=== PATIENT | male | born 1985 | race Caucasian/White ===

== ENCOUNTER 2020-08-25 10:26 | Outpatient (REF) | payer OTHER, SELFPAY ==
[2020-08-25 11:32] LABS: MANUAL DIFF FLAG NO
[2020-08-25 11:34] LABS: Basophils Percent Auto 0.7 % (0-2); Eosinophils Absolute Auto 0.2 X10*3/uL (0.0-0.4); Eosinophils Percent Auto 2.8 % (0-4); Hemoglobin 14.8 g/dl (14.0-18.0); Imm Gran Abs Auto 0.02 X10*3/uL (0.00-0.03); Imm Gran Pct Auto 0.3 % (0.0-0.4); Lymphocytes Absolute Auto 1.5 X10*3/uL (1.2-4.9); Lymphocytes Percent Auto 24.1 % (20-40); Mean Corpuscular HGB Conc 32.9 g/dl (31.0-36.0); Mean Corpuscular Hemoglobin 29.7 pg (27.0-33.0); Mean Corpuscular Volume 90.4 fL (80-98); Mean Platelet Volume 11.1 fL (9.4-12.4); Monocytes Absolute Auto 0.6 X10*3/uL (0.1-1.2); Monocytes Percent Auto 9.1 % (2-11); Neutrophils Absolute Auto 3.8 X10*3/uL (2.0-8.3); Platelet Count 281 X10*3/uL (160-400); Red Blood Count 4.98 X10*6/uL (4.60-5.80); Red Cell Distribution Width 11.4 % (11.0-16.0); White Blood Count 6.1 X10*3/uL (4.8-10.8)
[2020-08-25 12:07] LABS: Alanine Aminotransferase 13 U/L (0-40); Albumin Level 4.4 g/dL (3.5-5.0); Alkaline Phosphatase 60 U/L (39-117); Anion Gap 11 (12-20); Aspartate Amino Transferase 18 U/L (5-37); Bilirubin Total 0.5 mg/dL (0.0-1.0); Blood Urea Nitrogen 14 mg/dL (9-16); Calcium 9.5 mg/dL (8.4-10.2); Carbon Dioxide 28 mmol/L (22-29); Chloride 105 mmol/L (96-108); Cholesterol 209 mg/dL; Estimated Glomerular Filt Rate > 60; Glucose Random 80 mg/dL (60-115); HDL Cholesterol 43 mg/dL; LDL Cholesterol Calculated 147 mg/dl; Potassium 4.2 mmol/l (3.3-5.1); Sodium 140 mmol/L (135-145); Total Protein 7.5 g/dL (6.5-8.0); Triglycerides 97 mg/dL
[2020-08-25 12:29] LABS: Free T4 (Free Thyroxine) 1.02 ng/dL (0.71-1.85); Thyroid Stimulating Hormone 0.74 uIU/mL (0.32-4.0)
[2020-08-25 13:48] LABS: Folate > 20.0 ng/mL (> or = 4.0); Vitamin B12 639 pg/mL (200-900)
== END 2020-08-25 10:27 | disposition home or self-care (01) ==
LOC: HO.LAB 10:26
PROVIDERS: PCP Internal Medicine; Visit Provider Internal Medicine
DX: G40.909 Epilepsy, unspecified, not intractable, without status epilepticus (principal); R79.89 Other specified abnormal findings of blood chemistry; E78.00 Pure hypercholesterolemia, unspecified
CPT/HCPCS: 36415; 80053; 80061; 82607; 82746; 84439; 84443; 85025

== ENCOUNTER 2020-11-15 15:20 | Outpatient (REF) | payer OTHER, SELFPAY ==
--- NOTE | 2020-11-15 14:38 | MHC.AU.AEV ---
Adult Audiological Evaluation Date of Visit: 11/15/20 Reason for Appointment: Audiological evaluation as required per [place] [facility]. His caregiver deny any concerns for Osbaldo's hearing or any changes to his medical history. Does patient feel they have a hearing loss?: No Has hearing been tested previously?: Yes Previous Hearing Test Results: [facility] [place], [place]01/[place]- Cerumen occlusion, hypercompliant middle-ear systems, and OAEs and speech testing suggest mild hearing loss. Ear History: History of Ear Wax Buildup: Both Ears Medical History: Medical History: Developmental Disorder/Delay, Seizure Disorder Medical History: OCD/Mood Disorder Otoscopy: Right Ear: Partially occluded with cerumen, able to partially view TM Left Ear: Occluded with cerumen, unable to view TM. Tympanometry: Tympanometry performed due to: History of middle ear dysfunction Right Ear: Hypercompliant Middle Ear System (Type Ad) Left Ear: Hypercompliant Middle Ear System (Type Ad) Otoacoustic Emissions Frequency Range Used: 1.6-8 kHz Right Ear Results: Reduced Emissions Analysis: Reduced/Absent emissions suggest cochlear dysfunction Reduced/absent emissions may be consequence of middle ear dysfunction Left Ear Results: Present at 1600 Hz, reduced/absent 8441-5146 Hz. Analysis: Reduced/Absent emissions suggest cochlear dysfunction Reduced/absent emissions may be consequence of middle ear dysfunction Hearing Evaluation: Transducer(s) Used: Circumaural Headphones Method: Conventional Audiometry, Visual Reinforcement Audiometry (VRA) Stimuli Used: FRESH Noise, Pure Tones Description of Hearing: Attempted VRA and conventional audiometry. Uninterested in the task and would not participate. Unable to obtain any frequency specific responses. Speech Recognition Threshold (SRT): Method Used: Monitored Live Voice Stimuli Used: Spondee Words Right Ear: 20 dBHL Left Ear: 20 dBHL Interpretation of Results: Speech testing indicates hearing in the normal range for speech stimuli. Unable to determine frequency specific thresholds at this time. Decreased/absent OAEs suggest hearing loss bilaterally, however OAEs may be impacted by hypercompliant middle-ear systems and cerumen build-up. Recommendations: Audiological re-evaluation if changes are noted. Audiological re-evaluation in one year. Follow-up with physician for cerumen removal. Given that no concerns are noted, plan to continue routine follow-ups yearly. If concerns arise, may considered a referral to otolaryngology and/or a sedated ABR. Diagnosis: Primary Diagnosis: H61.23 Impacted Cerumen, Bilateral Secondary Diagnosis: H69.93 Unspecified Eustachian Tube Dysfunction, Bilateral Services Performed: Speech Audiometry Threshold (SRT/SAT) (CPT 02199) Diagnostic Otoacoustic Emissions (CPT 95371, 26+TC) Tympanometry (CPT 40723) Signature: Provider: Gualberto Rea, CCC-A
== END 2020-11-15 15:21 | disposition home or self-care (01) ==
LOC: HO.SH 15:20
PROVIDERS: Visit Provider Internal Medicine
DX: H61.23 Impacted cerumen, bilateral (principal); H69.93 Unspecified Eustachian tube disorder, bilateral
CPT/HCPCS: 92555; 92567; 92588

== ENCOUNTER 2021-11-17 10:01 | Outpatient (REF) | payer OTHER, SELFPAY ==
--- NOTE | 2021-11-17 15:00 | MHC.AU.AEV ---
Adult Audiological Evaluation Date of Visit: 11/17/21 Reason for Appointment: Audiological re-evaluation as required by Osbaldo's DDS care program. Osbaldo's caregiver denies any significant concerns for his hearing or any changes to his medical history since his last visit. Has hearing been tested previously?: Yes Previous Hearing Test Results: [facility] [place], 11/15/2020- Occluding cerumen, hypercompliant middle-ear systems, and reduced otoacoustic emissions bilaterally. SRTs in the normal range at 20 dBHL bilaterally. Unable to obtain responses to frequency-specific stimuli, as Osbaldo was uninterested in the task. Attempted conventional audiometry and VRA. [facility] [place], 05/01/2019- Partially occluding cerumen, hypercompliant middle-ear systems, and reduced otoacoustic emissions bilaterally. SRTs of 35 dBHL in the right ear and 25 dBHL in the left ear. Unable to obtain responses to frequency-specific stimuli, as Osbaldo was uninterested in the task. Attempted conventional audiometry, play audiometry, and VRA. Ear History: History of Ear Wax Buildup: Both Ears Medical History: Medical History: Developmental Disorder/Delay, Seizure Disorder, OCD/Mood Disorder, hyponatremia Allergies: methylphenidate, pecan nut, terfenadine Medication List: acetaminophen, multivitamin, Ativan, Risperdal, Prozac, Keppra Otoscopy: Right Ear: Completely occluded with cerumen, unable to visualize tympanic membrane. Left Ear: Completely occluded with cerumen, unable to visualize tympanic membrane. Tympanometry: Tympanometry performed due to: History of middle ear dysfunction Right Ear: Hypercompliant Middle Ear System (Type Ad) Left Ear: Hypercompliant Middle Ear System (Type Ad) Otoacoustic Emissions Frequency Range Used: 1.6-8 kHz Right Ear Results: Present at 2000 Hz. Reduced 1600 & 9955-8668 Hz. Analysis: Reduced/absent emissions may be consequence of middle ear dysfunction and/or cerumen build-up. Left Ear Results: Present at 3600 & 4500 Hz. Reduced/absent 4553-8511, 4000, & 5000 Analysis: Reduced/absent emissions may be consequence of middle ear dysf and/or cerumen build-up. unction Hearing Evaluation: Transducer(s) Used: Circumaural Headphones Method: Conventional Audiometry, Visual Reinforcement Audiometry (VRA) Stimuli Used: Pure Tones Attempted, but Osbaldo did not respond to any frequency specific stimuli today due to disinterest in the task. Speech Recognition Threshold (SRT): Method Used: Monitored Live Voice Stimuli Used: Spondee Words Right Ear: 30 dBHL Left Ear: 30 dBHL Interpretation of Results: Reduced otoacoustic emissions bilaterally may be related to significant cerumen impaction and/or middle-ear dysfunction. Speech testing indicates hearing in the mild hearing loss range. Unable to determine frequency-specific hearing thresholds today. Recommendations: Audiological re-evaluation if changes are noted. Audiological re-evaluation in one year. Follow-up with physician for cerumen removal.Recommend weekly use of earwax softening drops to help prevent further build-up. Given that concerns are not noted by his care staff, plan to continue routine follow-ups annually. If concerns arise, may consider a referral to ENT and/or a sedated ABR. Diagnosis: Primary Diagnosis: H61.23 Impacted Cerumen, Bilateral Secondary Diagnosis: H69.93 Unspecified Eustachian Tube Dysfunction, Bilateral Signature: Provider: Gualberto Rea, CCC-A
== END 2021-11-17 10:02 | disposition home or self-care (01) ==
LOC: HO.SH 10:01
PROVIDERS: Visit Provider Internal Medicine
DX: Z01.118 Encounter for examination of ears and hearing with other abnormal findings (principal); H61.23 Impacted cerumen, bilateral; H69.93 Unspecified Eustachian tube disorder, bilateral
CPT/HCPCS: 92555; 92567; 92588

== ENCOUNTER 2022-01-05 10:30 | Outpatient (REF) | payer OTHER, SELFPAY ==
[2022-01-05 10:46] LABS: MANUAL DIFF FLAG NO
[2022-01-05 11:47] LABS: Basophils Percent Auto 0.6 % (0-2); Eosinophils Absolute Auto 0.1 X10*3/uL (0.0-0.4); Eosinophils Percent Auto 1.7 % (0-4); Hematocrit 43.3 % (42.0-52.0); Hemoglobin 14.5 g/dl (14.0-18.0); Imm Gran Abs Auto 0.02 X10*3/uL (0.00-0.03); Imm Gran Pct Auto 0.4 % (0.0-0.4); Lymphocytes Absolute Auto 1.3 X10*3/uL (1.2-4.9); Mean Corpuscular HGB Conc 33.5 g/dl (31.0-36.0); Mean Corpuscular Volume 89.5 fL (80.0-98.0); Mean Platelet Volume 11.3 fL (9.4-12.4); Monocytes Absolute Auto 0.4 X10*3/uL (0.1-1.2); Neutrophils Absolute Auto 3.3 x10*3/uL (2.0-8.3); Neutrophils Percent Auto 64.3 % (45-73); Platelet Count 260 X10*3/uL (160-400); Red Blood Count 4.84 X10*6/uL (4.60-5.80); Red Cell Distribution Width 11.8 % (11.0-16.0); White Blood Count 5.2 X10*3/uL (4.8-10.8)
[2022-01-05 12:20] LABS: Alanine Aminotransferase 13 U/L (0-40); Albumin Level 4.4 g/dL (3.5-5.0); Alkaline Phosphatase 77 U/L (39-117); Anion Gap 13 (12-20); Aspartate Amino Transferase 17 U/L (5-37); Bilirubin Total 0.6 mg/dL (0.0-1.0); Blood Urea Nitrogen 13 mg/dL (9-16); Calcium 9.8 mg/dL (8.4-10.2); Carbon Dioxide 23 mmol/L (22-29); Chloride 104 mmol/L (96-108); Cholesterol 208 mg/dL; Estimated Glomerular Filt Rate > 60; Glucose Random 114 mg/dL (60-115); HDL Cholesterol 40 mg/dL; LDL Cholesterol Calculated 151 mg/dl; Potassium 4.4 mmol/L (3.3-5.1); Sodium 136 mmol/L (135-145); Total Protein 7.4 g/dL (6.5-8.0); Triglycerides 88 mg/dL
[2022-01-05 12:42] LABS: Free T4 (Free Thyroxine) 1.01 ng/dL (0.71-1.85); Thyroid Stimulating Hormone 0.98 uIU/mL (0.32-4.0)
[2022-01-05 12:54] LABS: Folate > 20.0 ng/mL (> or = 4.0); Vitamin B12 695 pg/mL (200-900)
== END 2022-01-05 10:31 | disposition home or self-care (01) ==
LOC: HO.LAB 10:30
PROVIDERS: PCP Internal Medicine; Visit Provider Internal Medicine
DX: E78.00 Pure hypercholesterolemia, unspecified (principal)
CPT/HCPCS: 36415; 80053; 80061; 82607; 82746; 84439; 84443; 85025

== ENCOUNTER 2022-05-22 10:59 | Outpatient (REF) | payer OTHER, SELFPAY ==
[2022-05-22 11:09] LABS: MANUAL DIFF FLAG NO
[2022-05-22 11:36] LABS: Basophils Percent Auto 0.6 % (0-2); Eosinophils Absolute Auto 0.1 X10*3/uL (0.0-0.4); Eosinophils Percent Auto 1.8 % (0-4); Hemoglobin 13.7 g/dl (14.0-18.0); Imm Gran Abs Auto 0.02 X10*3/uL (0.00-0.03); Imm Gran Pct Auto 0.3 % (0.0-0.4); Lymphocytes Absolute Auto 1.3 X10*3/uL (1.2-4.9); Lymphocytes Percent Auto 20.6 % (20-40); Mean Corpuscular HGB Conc 33.4 g/dl (31.0-36.0); Mean Corpuscular Hemoglobin 29.7 pg (27.0-33.0); Mean Corpuscular Volume 88.9 fL (80.0-98.0); Mean Platelet Volume 10.8 fL (9.4-12.4); Monocytes Absolute Auto 0.4 X10*3/uL (0.1-1.2); Monocytes Percent Auto 7.1 % (2-11); Neutrophils Absolute Auto 4.3 x10*3/uL (2.0-8.3); Neutrophils Percent Auto 69.6 % (45-73); Platelet Count 302 X10*3/uL (160-400); Red Blood Count 4.61 X10*6/uL (4.60-5.80); Red Cell Distribution Width 11.6 % (11.0-16.0); White Blood Count 6.2 X10*3/uL (4.8-10.8)
[2022-05-22 12:09] LABS: Alanine Aminotransferase 18 U/L (0-40); Albumin Level 4.3 g/dL (3.5-5.0); Alkaline Phosphatase 69 U/L (39-117); Anion Gap 15 (12-20); Aspartate Amino Transferase 18 U/L (5-37); Bilirubin Total 0.4 mg/dL (0.0-1.0); Blood Urea Nitrogen 17 mg/dL (9-16); Calcium 9.5 mg/dL (8.4-10.2); Carbon Dioxide 20 mmol/L (22-29); Chloride 106 mmol/L (96-108); Estimated Glomerular Filt Rate > 60; Glucose Random 108 mg/dL (60-115); Sodium 137 mmol/L (135-145); Total Protein 7.2 g/dL (6.5-8.0)
[2022-05-22 12:15] LABS: Thyroid Stimulating Hormone 0.98 uIU/mL (0.32-4.0)
[2022-05-22 12:21] LABS: Appearance Urine Clear; Color Urine Yellow; Glucose Urine UA Negative (Negative); Leukocyte Esterase Urine Negative (Negative); Nitrite Urine Negative (Negative); PH 6.5 (5.0-9.0); Urine Blood Negative (Negative); Urine Ketones Negative (Negative); Urine Protein Negative (Neg-Trace)
[2022-05-22 12:26] LABS: Bacteria Urine None Seen (None Seen); Hyaline Casts Urine 0-2 /LPF (0-2); RBC Urine 0-2 /HPF (0-2); Squamous Epithelial Cell Urine 0-2 /HPF (0-2); WBC Urine 0-5 /HPF (0-5)
== END 2022-05-22 11:00 | disposition home or self-care (01) ==
LOC: HO.LAB 10:59
PROVIDERS: PCP Internal Medicine; Visit Provider Internal Medicine
DX: R41.0 Disorientation, unspecified (principal)
CPT/HCPCS: 36415; 80053; 81001; 84443; 85025

== ENCOUNTER 2022-12-07 13:32 | Outpatient (REF) | payer OTHER, SELFPAY | END 2022-12-07 13:33 | disposition home or self-care (01) | LOC: HO.SH 13:32 | PROVIDERS: Visit Provider Internal Medicine | DX: Z01.118 Encounter for examination of ears and hearing with other abnormal findings (principal); H90.3 Sensorineural hearing loss, bilateral | CPT/HCPCS: 92567; 92579; 92588 ==

== ENCOUNTER 2023-05-22 15:36 | Outpatient (AMB) | payer OTHER, SELFPAY ==
--- NOTE | 2023-05-22 16:00 | MHC.OFFWIV ---
Intake Vital Signs 05/22/23 16:03 Weight 202 lb BP 112/70 Blood Pressure Location Lt brachial Position Sitting Pulse 82 Pulse Source Pulse Oximeter Pulse Oximetry (%) 97 Oxygen Delivery Method Room Air Intake Visit Reasons: EP Left hand Intake Note: Patient here for left hand wound on third finger. seems to be an old wound but it is now red. Patient Tobacco Use Status: Never used Tobacco Allergies methylphenidate [From RITALIN] Allergy (Unknown, Verified 05/22/23 16:37) UNKNOWN pecan nut [PECAN] Allergy (Unknown, Verified 05/22/23 16:37) UNKNOWN terfenadine [From SELDANE] Allergy (Unknown, Verified 05/22/23 16:37) UNKNOWN Medication List - Last Reconciled 05/22/23 by Inocente Deshpande MD acetaminophen ER 650 mg PO Q8H fluoxetine (Prozac) 20 mg PO DAILY levetiracetam (Keppra) 1,500 mg PO BID lorazepam (Ativan) Ativan 1mg take one tablet by mouth ones daily 45 minutes prior to exams or procedures as needed for agitation. PO PRN; multivitamin (One Daily Multivitamin tablet) 1 tab PO DAILY [None sterile gloves As directed] risperidone (Risperdal) 1 mg PO BID Do you need a note to return to daycare/school/sports/work: No HPI EP Left hand HPI Details 37-year-old male presents to the office for a sick visit. Patient has learning and developmental disabilities. He does not communicate. He lives in a skilled nursing and comes with the attendant. The attendant noticed an open wound on his left hand and would like it evaluated. [facility] Medical History (Updated 05/22/23 @ 16:39 by Inocente Deshpande MD) Obesity (BMI 30-39.9) Seizure disorder Autism Mental and behavioral problem Clavicular fracture Surgical History No pertinent past surgical history Family History Father No problems noted. Mother Medical history unknown Social History (Updated 02/24/21 @ 10:30 by Nesha Valdez [facility]) Housing: Assisted Living Facility Alcohol intake: never Patient Tobacco Use Status: Never used Tobacco e-Cigarette/Vaping Use: Never Used Second Hand Smoke Exposure: No service: No Current occupational status: disabled Cognitive needs: Yes Hearing needs: Yes Vision needs: No Physical Exam Vital Signs: Last Vital Signs Pulse 82 05/22/23 16:03 BP 112/70 05/22/23 16:03 Pulse Ox 97 05/22/23 16:03 Oxygen Delivery Method Room Air 05/22/23 16:03 Extrem Other: Left hand: 3rd digit: A healing old wound, 1 cm in size. No surrounding erythema. Assessment & Plan Assessment & Plan (1) Wound, open, finger: Code(s): S61.209A - Unspecified open wound of unspecified finger without damage to nail, initial encounter Plan: Bacitracin cream to be applied twice a day. If symptoms worsen to follow-up here. Coding Level of Care Code Est Pt Level 3 (89977) Diagnoses Wound, open, finger S61.209A
[2023-05-22 16:03] VITALS: BP 112/70; PULSE 82; O2SAT 97
== END 2023-05-22 16:47 | disposition home or self-care (01) ==
PROVIDERS: PCP Internal Medicine; Visit Provider Internal Medicine
DX: S61.203A Unspecified open wound of left middle finger without damage to nail, initial encounter (principal)
CPT/HCPCS: 99213

== ENCOUNTER 2023-10-12 10:01 | Outpatient (AMB) | payer OTHER, SELFPAY ==
[2023-10-12 10:12] VITALS: BP 108/68; PULSE 100; O2SAT 97; BMI 29.3
--- NOTE | 2023-10-12 10:12 | A.OFFPC_ITS ---
Vital Signs 10/12/23 10:12 Height 5 ft 11 in Weight 210 lb BMI 29.3 BP 108/68 Blood Pressure Location Lt brachial Position Sitting Pulse 100 Pulse Source Pulse Oximeter Pulse Oximetry (%) 97 Oxygen Delivery Method Room Air Intake Visit Reasons: PE Intake Note: Patient is here today for a physical. [employer] Required: No Accompanied by: [employer] Allergies methylphenidate [From RITALIN] Allergy (Unknown, Verified 10/12/23 10:13) UNKNOWN pecan nut [PECAN] Allergy (Unknown, Verified 10/12/23 10:13) UNKNOWN terfenadine [From SELDANE] Allergy (Unknown, Verified 10/12/23 10:13) UNKNOWN Medication List - Last Reconciled 10/12/23 by Lokesh Robertson MD acetaminophen ER 650 mg PO Q8H bacitracin zinc (Antibiotic (bacitracin zinc)) 1 appl topical BID fluoxetine (Prozac) 20 mg PO DAILY levetiracetam (Keppra) 1,500 mg PO BID lorazepam (Ativan) Ativan 1mg take one tablet by mouth ones daily 45 minutes p rior to exams or procedures as needed for agitation. PO PRN; multivitamin (One Daily Multivitamin tablet) 1 tab PO DAILY [None sterile gloves As directed] risperidone (Risperdal) 1 mg PO BID Tobacco use date assessed: 10/12/23 Dental Screening Dental Screen Date: 10/12/23 Did you have a dental visit in the last 12 months?: Yes Did you have a dental problem in the last 6 months where you did not have access to dental care?: No Was dental information given to patient?: Patient has dentist HPI PE HPI Details 37-year-old overweight male with a histo ry of mental behavior problem hypercholesterolemia seizure disorder impaired glucose tolerance coming in for physical exam patient had some impacted cerumen in November 2022. Was seen in the Urgent Center in May for a left hand 3rd finger wound [facility] Medical History (Updated 10/12/23 @ 10:38 by Lokesh Robertson MD) Obesity (BMI 30-39.9) Seizure disorder Autism Mental and behavioral problem Clavicular fracture Surgical History No pertinent past surgical history Family History Father No problems noted. Mother Medical history unknown Social History Housing: Assisted Living Facility Alcohol intake: never Patient Tobacco Use Status: Never used Tobacco e-Cigarette/Vaping Use: Never Used Second Hand Smoke Exposure: No service: No Current occupational status: disabled Cognitive needs: Yes Hearing needs: Yes Vision needs: No Questionnaire PHQ-9 Over the last 2 weeks, how often have you been bothered by any of the following problems? 1. Little interest or pleasure in doing things: not at all 2. Feeling down, depressed, or hopeless: not at all 3. Trouble falling or staying asleep, or sleeping too much: not at all 4. Feeling tired or having little energy: not at all 5. Poor appetite or overeating: not at all 6. Feeling bad about yourself - or that you are a failure or have let yourself or your family down: not at all 7. Trouble concentrating on things, such as reading the newspaper or watching television: not at all 8. Moving or speaking so slowly that other people could have noticed. Or the opposite - being so fidgety or restless that you have been moving around a lot more than usual: not at all 9. Thoughts that you would be better off or of hurting yourself in some way: not at all Total score: 0 Depression Screening Interpretation: Negative Depression Screening Done: Yes 58595 - PHQ-9 Billing: Yes Source: Developed by Drs. Kenneth Mauricio, Lucia Luu, Ori Becerra and colleagues, with an educational sylvia from [employer]. Thrive Questionnaire Date Thrive assessed: 10/12/23 I am a: Patient What is your living situation today?: I have a steady place to live Within the past 12 months, did the food you bought not last and you didn't have the money to get more?: Never true Within the past 12 months, did you worry whether your food would run out before you got money to buy more?: Never true Do you have trouble paying for medicines?: No Do you have trouble getting transportation to medical appointments?: No Do you have trouble paying your heating and electricity bill?: No Do you have trouble taking care of your child, family member or friend?: No Do you have trouble with day-to-day activities such as bathing, preparing meals, shopping, managing finances, etc.?: No Are you currently unemployed and looking for a job?: No Are you interested in more education?: No Please select the resources that you would like help with: None Currently or been in a relationship where the following occur: no concerns reported THRIVE Score: 0 AUDIT C Alcohol Use Questionnaire (AUDIT-C) 1. How often do you have a drink containing alcohol?: Never 3. How often do you have six or more drinks on one occasion?: Never Total Score: 0 MARTA-7 AMB Questionnaire MARTA-7 Date MARTA - 7 assessed: 10/12/23 Feeling nervous, anxious, or on edge: 0 = Not at all Not being able to stop or control worryin = Not at all Worrying too much about different things: 0 = Not at all Trouble relaxin = Not at all Being so restless that it is hard to sit still: 0 = Not at all Becoming easily annoyed or irritable: 0 = Not at all Feeling afraid as if something awful might happen: 0 = Not at all Total MARTA-7 score (0-4 normal; 5-9 mild; 10-14 moderate; 15-21 severe): 0 Source: Developed by Drs. Kenneth Mauricio, Lucia Luu, Ori Becerra and colleagues, with an educational sylvia from [employer]. MARTA-7 Assessment Billing MARTA-7 Assessment Tool: MARTA-7 Assessment 22299 Review of Systems Const Denies poor appetite and Denies weakness Eyes Denies no additional complaints ENT Reports Normal hearing present, Denies dizziness, Denies nasal congestion, Denies tinnitus and Denies sore throat Card Denies chest pain, Denies syncope, Denies rapid heart rate and Denies dyspnea Resp Denies cough and Denies dyspnea GI Denies change in stool character, Reports constipation, Denies diarrhea, Denies nausea and Denies vomiting Denies dysuria and Denies urinary frequency Neuro Reports Normal hearing present, Denies confusion, Denies dizziness, Denies syncope and Denies weakness Psych Denies confusion Physical exam (Primary Care) Vital Signs: Last Vital Signs Pulse 100 10/12/23 10:12 BP 108/68 10/12/23 10:12 Pulse Ox 97 10/12/23 10:12 Oxygen Delivery Method Room Air 10/12/23 10:12 BMI result Body Mass Index 29.3 Tobacco/Smoking Status: Tobacco use Status Tobacco use date assessed 10/12/23 10/12/23 10:13 Patient Tobacco Use Status Never used Tobacco 10/12/23 10:13 e-Cigarette/Vaping Use Never Used 10/12/23 10:13 PHQ-9: PHQ-9 Score PHQ-9: Total score 0 10/12/23 10:26 Depression Screening Interpretation: Negative Thrive Assessment: Date of Thrive Assessment Date Thrive assessed 10/12/23 10/12/23 10:26 Currently or been in a relationship where the following occur: no concerns reported Const General: No confusion Orientation/consciousness: No confusion HENMT Head: Yes normocephalic Ears: external ears normal and TM's normal bilaterally Face and sinus: Yes normal facial exam Mouth: moist mucous membranes Throat: Yes tonsils normal Eyes Conjunctivae: conjunctivae normal Pupils: Equal, round and reactive pupils present and Pupil accommodation reflex normal Direct Ophthalmoscopy: normal light reflex Neck Neck: No lymphadenopathy Thyroid: Thyroid normal Chest Chest palpation & inspection: normal inspection of the chest Resp Effort & Inspection: normal respiratory effort and no audible wheezes Auscultation: clear to auscultation bilaterally, no crackles, no wheezes and lung sounds not diminished Cardio Rate: regular rate Rhythm: regular rhythm Peripheral pulses: radial pulses present and dorsalis pedis present GI Palpation (GI): no masses Auscultation: normal bowel sounds and normoactive bowel sounds Rectal Exam - Male: Yes deferred Skin General skin exam: no rashes or lesions noted Rashes: no rashes Neuro General: No confusion Cranial nerves: Yes Equal, round and reactive pupils present and Yes Normal hearing present Cognition (Neuro): normal cognition Gait exam (Neuro): Normal gait present Motor exam (neuro): 5/5 motor strength present throughout Deep tendon reflexes (DTR's): Right brachioradialis reflex intensity grade: 2+, Left brachioradialis reflex intensity grade: 2+, Right patellar reflex intensity grade: 2+ and Left patellar reflex intensity grade: 2+ Extrem General: No edema Office Procedures Flu Questionnaire Does the patient have a severe egg allergy?: No Does the patient have severe life threatening allergies?: No Does the patient have a fever or illness today?: No Has the patient ever had Guillain-[place] Syndrome?: No Has the patient ever had any past reaction to a flu shot?: No Immunizations flu vacc [id number] 6mos up(PF) 60 mcg(15 mcgx4)/0.5 mL IM syringe Performing Provider: Lokesh Robertson MD Performing Location: [facility] Administered by: STEPHANY Virgen on 10/12/23 10:25 Dose Route Admin Location Dispensed Lot Number Expiration Date NDC Process Planner 0.5 mL IM Right Deltoid 0.5 mL [id number] 03/02/24 [id number] [employer] VIS Given Date VIS Provided VIS Publication Date 10/12/23 Single Vaccine 21 Eligibility Eligibility Date Funding Source Not [facility] Eligible 10/12/23 Private Assessment and Plan Assessment & Plan (1) Annual physical exam: Code(s): Z00.00 - Encounter for general adult medical examination without abnormal findings (2) Hypercholesterolemia: Code(s): E78.00 - Pure hypercholesterolemia, unspecified Plan: Avoid fried foods, chicken skin, eggs, butter margarine, pastries and meat. Be it pork or beef they have a lot of cholesterol (3) Seizure disorder: Comment: October 2015 Code(s): G40.909 - Epilepsy, unspecified, not intractable, without status epilepticus Plan: Continue with present medication and follow-up with Neurology (4) Mental and behavioral problem: Code(s): F48.9 - Nonpsychotic mental disorder, unspecified; F69 - Unspecified disorder of adult personality and behavior Plan: Continue with counseling and therapy (5) Impaired glucose tolerance: Code(s): R73.02 - Impaired glucose tolerance (oral) Plan: Decrease the amount of carbohydrate intake, pasta, bread, rice and potatoes are all sugar and that is aside from all the sweet stuff, remember that fruits are good but they are Sweet also. (6) Overweight (BMI 25.0-29.9): Code(s): E66.3 - Overweight Plan: Diet and exercise (7) Anemia: Code(s): D64.9 - Anemia, unspecified Plan: Will continue to follow-up on this. Orders: Orders Influenza [id number] Immunization Today Z23 - Encounter for immunization Coding Level of Care Code Est Pt Prev Care [id number]([id number]) Diagnoses Annual physical exam Z00.00 Hypercholesterolemia E78.00 Seizure disorder G40.909 Mental and behavioral problem F48.9; F69 Impaired glucose tolerance R73.02 Overweight (BMI 25.0-29.9) E66.3 Anemia D64.9 Additional Codes MARTA-7 Assessment Billing - MARTA-7 Assessment Tool: MARTA-7 Assessment [id number] ([id number])
== END 2023-10-12 10:53 | disposition home or self-care (01) ==
PROVIDERS: Visit Provider Internal Medicine
DX: Z00.00 Encounter for general adult medical examination without abnormal findings (principal); G40.909 Epilepsy, unspecified, not intractable, without status epilepticus; E78.00 Pure hypercholesterolemia, unspecified; Z23 Encounter for immunization; E66.3 Overweight; F48.9 Nonpsychotic mental disorder, unspecified; F69 Unspecified disorder of adult personality and behavior; Z68.29 Body mass index [BMI] 29.0-29.9, adult; R73.02 Impaired glucose tolerance (oral); D64.9 Anemia, unspecified
CPT/HCPCS: 90471; 90686; 99395

== ENCOUNTER 2024-05-02 09:58 | Outpatient (REF) | payer OTHER, SELFPAY | END 2024-05-02 09:59 | disposition home or self-care (01) | LOC: HO.SH 09:58 | PROVIDERS: Visit Provider Internal Medicine | DX: Z01.118 Encounter for examination of ears and hearing with other abnormal findings (principal); H93.293 Other abnormal auditory perceptions, bilateral | CPT/HCPCS: 92555; 92567; 92588 ==

== ENCOUNTER 2024-05-22 07:55 | Outpatient (REF) | payer OTHER, SELFPAY ==
[2024-05-22 08:13] LABS: MANUAL DIFF FLAG NO
[2024-05-22 08:24] LABS: Basophils Percent Auto 0.7 % (0-2); Eosinophils Absolute Auto 0.2 X10*3/uL (0.0-0.4); Hemoglobin 14.5 g/dl (14.0-18.0); Imm Gran Abs Auto 0.01 X10*3/uL (0.00-0.03); Imm Gran Pct Auto 0.2 % (0.0-0.4); Immature Retic Fraction 7.2 % (2.3-13.4); Lymphocytes Absolute Auto 1.5 X10*3/uL (1.2-4.9); Lymphocytes Percent Auto 25.2 % (20-40); Mean Corpuscular HGB Conc 34.5 g/dl (31.0-36.0); Mean Corpuscular Hemoglobin 30.3 pg (27.0-33.0); Mean Corpuscular Volume 87.9 fL (80.0-98.0); Monocytes Absolute Auto 0.5 X10*3/uL (0.1-1.2); Neutrophils Absolute Auto 3.7 x10*3/uL (2.0-8.3); Neutrophils Percent Auto 62.9 % (45-73); Platelet Count 290 X10*3/uL (160-400); Red Blood Count 4.78 X10*6/uL (4.60-5.80); Red Cell Distribution Width 11.8 % (11.0-16.0); Retic HGB Equivalent 34.3 pg (30.0-35.0); Reticulocyte Percent 1.5 % (0.5-1.8); White Blood Count 5.9 X10*3/uL (4.8-10.8)
[2024-05-22 08:56] LABS: Alanine Aminotransferase 14 U/L (0-40); Alkaline Phosphatase 64 U/L (39-117); Anion Gap 10 (12-20); Aspartate Amino Transferase 15 U/L (5-37); Bilirubin Total 0.4 mg/dL (0.0-1.0); Blood Urea Nitrogen 15 mg/dL (9-16); Carbon Dioxide 25 mmol/L (22-29); Chloride 109 mmol/L (96-108); Cholesterol 204 mg/dL (<200); Estimated Glomerular Filt Rate > 60; Glucose Random 93 mg/dL (60-115); HDL Cholesterol 43 mg/dL (>40); Iron 86 mcg/dL (45-160); LDL Cholesterol Calculated 146 mg/dL (<100); Percent Iron Saturation 32 % (15-50); Potassium 3.9 mmol/L (3.3-5.1); Sodium 140 mmol/L (135-145); Total Iron Binding Capacity 265 mcg/dL (228-428); Triglycerides 75 mg/dL (<150); Unsaturated Iron Binding 179 ug/dL
[2024-05-22 09:16] LABS: Ferritin 61 ng/mL (20-250); Thyroid Stimulating Hormone 0.83 uIU/mL (0.32-4.0)
[2024-05-22 09:26] LABS: Folate 17.2 ng/mL (> or = 4.0); Vitamin B12 814 pg/mL (200-900)
[2024-05-22 10:13] LABS: Estimated Average Glucose 94 mg/dL; Hemoglobin A1c % 4.9 % (<6.0); Total Hemoglobin (HGBA1C) 3537.1872 umol/L
== END 2024-05-22 07:56 | disposition home or self-care (01) ==
LOC: HO.LAB 07:55
PROVIDERS: PCP Internal Medicine; Visit Provider Internal Medicine
DX: R73.02 Impaired glucose tolerance (oral) (principal); E78.00 Pure hypercholesterolemia, unspecified; D64.9 Anemia, unspecified
CPT/HCPCS: 36415; 80053; 80061; 82607; 82728; 82746; 83036; 83540; 84439; 84443; 85025; 85045

== ENCOUNTER 2024-10-13 10:06 | Outpatient (AMB) | payer OTHER, SELFPAY ==
--- NOTE | 2024-10-13 10:09 | MHC.PC.OV ---
Vital Signs 10/13/24 10:10 Height 5 ft 11 in Weight 217 lb BMI 30.3 BP 122/70 Blood Pressure Location Lt brachial Position Sitting Pulse 88 Pulse Source Pulse Oximeter Pulse Oximetry (%) 97 Oxygen Delivery Method Room Air Intake Visit Reasons: annual exam Intake Note: Patient here for an annual physical exam Sap Portal Architect Required: No Accompanied by: staff Allergies methylphenidate [From RITALIN] Allergy (Unknown, Verified 10/13/24 10:14) UNKNOWN pecan nut [PECAN] Allergy (Unknown, Verified 10/13/24 10:14) UNKNOWN terfenadine [From SELDANE] Allergy (Unknown, Verified 10/13/24 10:14) UNKNOWN Tobacco use date assessed: 10/13/24 Dental Screening Dental Screen Date: 10/13/24 Did you have a dental visit in the last 12 months?: Yes Did you have a dental problem in the last 6 months where you did not have access to dental care?: No Was dental information given to patient?: Patient has dentist HPI annual exam HPI Details The patient is a 38-year-old male presenting with obesity and chronic conditions including hypercholesterolemia, seizure disorder, and glucose intolerance. The patient has a documented 7-pound weight gain since October 12. He exhibits poor dietary habits, notably high starch intake with rice and potatoes, contributing to weight gain. His obesity is characterized by a Body Mass Index (BMI) of 30.3. He was last seen on October 12, with blood work showing elevated LDL cholesterol of 146 mg/dL. He has a history of normal blood counts, electrolytes, renal function, blood sugar, liver function, B12, folic acid, and thyroid levels. The seizure disorder is currently managed with Keppra and lorazepam, with no seizures reported since the last visit. Glucose intolerance is noted, though current blood sugar levels are normal. - Flu vaccine administered 3 months ago - Tetanus prophylaxis up-to-date as of 2016 - Wellness plan: Recommendations for dietary and exercise modifications to manage obesity and hypercholesterolemia - LDL goal of less than 130 mg/dL and triglycerides less than 150 mg/dL - Smoking, alcohol, and substance use not discussed - High starch intake, particularly rice and potatoes, noted in diet - Engages in some physical activity, but specific exercise routines not detailed - Constitutional: Denies recent seizures - Metabolic/Endocrine: Reports weight gain since last visit - Neurological: Denies recent seizure activity - Labs: Elevated LDL cholesterol of 146 mg/dL from previous blood work - All other labs including blood count, electrolytes, renal function, blood sugar, and liver function normal [facility] Medical History (Updated 10/12/23 @ 10:38 by Lokesh Robertson MD) Obesity (BMI 30-39.9) Seizure disorder Autism Mental and behavioral problem Clavicular fracture Surgical History No pertinent past surgical history Family History Father No problems noted. Mother Medical history unknown Social History Housing: Assisted Living Facility Alcohol intake: never Patient Tobacco Use Status: Never used Tobacco e-Cigarette/Vaping Use: Never Used Second Hand Smoke Exposure: No service: No Current occupational status: disabled Cognitive needs: Yes Hearing needs: Yes Vision needs: No Questionnaire PHQ-9 Over the last 2 weeks, how often have you been bothered by any of the following problems? 1. Little interest or pleasure in doing things: not at all 2. Feeling down, depressed, or hopeless: not at all 3. Trouble falling or staying asleep, or sleeping too much: not at all 4. Feeling tired or having little energy: not at all 5. Poor appetite or overeating: not at all 6. Feeling bad about yourself - or that you are a failure or have let yourself or your family down: not at all 7. Trouble concentrating on things, such as reading the newspaper or watching television: not at all 8. Moving or speaking so slowly that other people could have noticed. Or the opposite - being so fidgety or restless that you have been moving around a lot more than usual: not at all 9. Thoughts that you would be better off or of hurting yourself in some way: not at all Total score: 0 Depression Screening Interpretation: Negative Depression Screening Done: Yes 90055 - PHQ-9 Billing: Yes Source: Developed by Drs. eKnneth Mauricio, Lucia Luu, Ori Becerra and colleagues, with an educational sylvia from [employer] Thrive Questionnaire Date Thrive assessed: 10/13/24 I am a: Parent/Caregiver What is your living situation today?: I choose not to answer this question Within the past 12 months, did the food you bought not last and you didn't have the money to get more?: I choose not to answer this question Within the past 12 months, did you worry whether your food would run out before you got money to buy more?: I choose not to answer this question Do you have trouble paying for medicines?: I choose not to answer this question Do you have trouble getting transportation to medical appointments?: I choose not to answer this question Do you have trouble paying your heating and electricity bill?: I choose not to answer this question Do you have trouble taking care of your child, family member or friend?: I choose not to answer this question Do you have trouble with day-to-day activities such as bathing, preparing meals, shopping, managing finances, etc.?: I choose not to answer this question Are you currently unemployed and looking for a job?: I choose not to answer this question Are you interested in more education?: I choose not to answer this question Please select the resources that you would like help with: Paying for medicine and None Currently or been in a relationship where the following occur: No concerns reported THRIVE Score: 0 AUDIT C Alcohol Use Questionnaire (AUDIT-C) 1. How often do you have a drink containing alcohol?: Never Total Score: 0 MARTA-7 AMB Questionnaire MARTA-7 Date MARTA - 7 assessed: 10/13/24 Feeling nervous, anxious, or on edge: 0 = Not at all Not being able to stop or control worryin = Not at all Worrying too much about different things: 0 = Not at all Trouble relaxin = Not at all Being so restless that it is hard to sit still: 0 = Not at all Becoming easily annoyed or irritable: 0 = Not at all Feeling afraid as if something awful might happen: 0 = Not at all Total MARTA-7 score (0-4 normal; 5-9 mild; 10-14 moderate; 15-21 severe): 0 Source: Developed by Drs. Kenneth Mauricio, Lucia Luu, Ori Becerra and colleagues, with an educational sylvia from [employer] Review of Systems Const Denies poor appetite and Denies weakness Eyes Denies no additional complaints ENT Reports Normal hearing present, Denies dizziness, Denies nasal congestion, Denies tinnitus and Denies sore throat Card Denies chest pain, Denies syncope, Denies rapid heart rate and Denies dyspnea Resp Denies cough and Denies dyspnea GI Denies change in stool character, Reports constipation, Denies diarrhea, Denies nausea and Denies vomiting Denies dysuria and Denies urinary frequency Neuro Reports Normal hearing present, Denies confusion, Denies dizziness, Denies syncope and Denies weakness Psych Denies confusion Physical exam (Primary Care) Vital Signs: Last Vital Signs Pulse 88 10/13/24 10:10 BP 122/70 10/13/24 10:10 Pulse Ox 97 10/13/24 10:10 Oxygen Delivery Method Room Air 10/13/24 10:10 BMI result Body Mass Index 30.3 Tobacco/Smoking Status: Tobacco use Status Tobacco use date assessed 10/13/24 10/13/24 10:17 Patient Tobacco Use Status Never used Tobacco 10/13/24 10:13 e-Cigarette/Vaping Use Never Used 10/13/24 10:13 PHQ-9: PHQ-9 Score PHQ-9: Total score 0 10/13/24 11:05 Depression Screening Interpretation: Negative Thrive Assessment: Date of Thrive Assessment Date Thrive assessed 10/13/24 10/13/24 10:13 Currently or been in a relationship where the following occur: No concerns reported Const General: No confusion Orientation/consciousness: No confusion HENMT Head: Yes normocephalic Ears: external ears normal and TM's normal bilaterally Face and sinus: Yes normal facial exam Mouth: moist mucous membranes Throat: Yes tonsils normal Eyes Conjunctivae: conjunctivae normal Pupils: Equal, round and reactive pupils present and Pupil accommodation reflex normal Direct Ophthalmoscopy: normal light reflex Neck Neck: No lymphadenopathy Thyroid: Thyroid normal Chest Chest palpation & inspection: normal inspection of the chest Resp Effort & Inspection: normal respiratory effort and no audible wheezes Auscultation: clear to auscultation bilaterally, no crackles, no wheezes and lung sounds not diminished Cardio Rate: regular rate Rhythm: regular rhythm Peripheral pulses: radial pulses present and dorsalis pedis present GI Palpation (GI): no masses Auscultation: normal bowel sounds and normoactive bowel sounds Rectal Exam - Male: Yes deferred Skin General skin exam: no rashes or lesions noted Rashes: no rashes Neuro General: No confusion Cranial nerves: Yes Equal, round and reactive pupils present and Yes Normal hearing present Cognition (Neuro): normal cognition Gait exam (Neuro): Normal gait present Motor exam (neuro): 5/5 motor strength present throughout Deep tendon reflexes (DTR's): Right brachioradialis reflex intensity grade: 2+, Left brachioradialis reflex intensity grade: 2+, Right patellar reflex intensity grade: 2+ and Left patellar reflex intensity grade: 2+ Extrem General: No edema Office Procedures Flu Questionnaire Does the patient have a severe egg allergy?: No Immunizations Fluarix Triv [id number] (PF) 45 mcg (15 mcg x 3)/0.5 mL IM syringe Performing Provider: Lokesh Robertson MD [facility] Documented (not given) by: ISAAC Bermudez on 10/13/24 11:05 Reason Not Given: Patient Refused Coding Level of Care Code Est Pt Prev Care 18-39y(06546) Diagnoses Annual physical exam Z00.00 Hypercholesterolemia E78.00 Obesity (BMI 30-39.9) E66.9 Seizure disorder G40.909 Autism F84.0 Impaired glucose tolerance R73.02 Additional Codes PHQ-9 - 03746 - PHQ-9 Billing: Yes ([id number]) Assessment & Plan Assessment & Plan (1) Annual physical exam: Code(s): Z00.00 - Encounter for general adult medical examination without abnormal findings Category: Medical Plan: Patient is advised to eat healthy, keep well hydrated, keep active and have adequate sleep. (2) Hypercholesterolemia: Code(s): E78.00 - Pure hypercholesterolemia, unspecified Category: Medical Plan: Avoid fried foods, chicken skin, eggs, butter margarine, pastries and meat. Be it pork or beef they have a lot of cholesterol LDL goal of less than 130 and triglyceride of less than 150 (3) Obesity (BMI 30-39.9): Code(s): E66.9 - Obesity, unspecified Category: Medical Plan: Diet and exercise (4) Seizure disorder: Comment: October 2015 Code(s): G40.909 - Epilepsy, unspecified, not intractable, without status epilepticus Category: Medical Plan: Continue with present medications on Keppra and lorazepam (5) Autism: Code(s): F84.0 - Autistic disorder Category: Medical Plan: Continue with present medication. (6) Impaired glucose tolerance: Code(s): R73.02 - Impaired glucose tolerance (oral) Category: Medical Plan: Decrease the amount of carbohydrate intake, pasta, bread, rice and potatoes are all sugar and that is aside from all the sweet stuff, remember that fruits are good but they are Sweet also. Plan - Continue current medications Keppra and lorazepam for seizure disorder - Emphasize dietary changes to reduce starch intake and promote a balanced diet - Encourage regular exercise to aid in weight management - Monitor glucose levels and manage glucose intolerance proactively - Schedule follow-up blood work in one year to reassess cholesterol levels and other indicators During the visit, I discussed with the patient the importance of addressing his weight gain and managing his hypercholesterolemia effectively. The need to adhere to a low-starch diet and engage in consistent physical activity was emphasized. The patient is to continue his current seizure management regimen with Keppra and lorazepam, with no changes in medication necessary at this time. I advised on the importance of achieving and maintaining LDL and triglyceride goals to reduce cardiovascular risk. We reviewed upcoming wellness plans and discussed the significance of routine vaccinations. Blood work will be scheduled one year from now, barring any acute health concerns that may necessitate earlier testing. I urged the patient to continue monitoring any signs or symptoms related to his chronic conditions and to seek care if necessary. - Maintain a diet low in rice, potatoes, and other high-starch foods - Begin or continue a consistent exercise routine - Monitor for signs of seizure activity and report any such occurrences immediately - Continue taking Keppra and lorazepam as prescribed - Plan for routine blood work in approximately one year - Stay updated with vaccinations and other health screenings as discussed - Seek assistance if experiencing any new or worsening health problems Orders: Orders Comprehensive Met. Panel 1 Year E78.00 - Pure hypercholesterolemia, unspecified Free T4 (Free Thyroxine) 1 Year E78.00 - Pure hypercholesterolemia, unspecified Vitamin B12 and Folate 1 Year E78.00 - Pure hypercholesterolemia, unspecified Influenza [id number] Immunization Today Z23 - Encounter for immunization Complete Blood Count Auto Diff 1 Year E78.00 - Pure hypercholesterolemia, unspecified Thyroid Stimulating Hormone 1 Year E78.00 - Pure hypercholesterolemia, unspecified Lipid Panel 1 Year E78.00 - Pure hypercholesterolemia, unspecified Hemoglobin A1c 1 Year E78.00 - Pure hypercholesterolemia, unspecified
[2024-10-13 10:10] VITALS: BP 122/70; PULSE 88; O2SAT 97; BMI 30.3
== END 2024-10-13 10:55 | disposition home or self-care (01) ==
PROVIDERS: PCP Internal Medicine; Visit Provider Internal Medicine
DX: Z00.00 Encounter for general adult medical examination without abnormal findings (principal); E66.9 Obesity, unspecified; Z68.30 Body mass index [BMI] 30.0-30.9, adult; G40.909 Epilepsy, unspecified, not intractable, without status epilepticus; E78.00 Pure hypercholesterolemia, unspecified; F84.0 Autistic disorder; R73.02 Impaired glucose tolerance (oral)

== ENCOUNTER → 2024-10-13 10:06 | Outpatient (BNVA) | payer OTHER, SELFPAY | PROVIDERS: PCP Internal Medicine; Visit Provider Internal Medicine | DX: Z00.00 Encounter for general adult medical examination without abnormal findings (principal); E78.00 Pure hypercholesterolemia, unspecified; E66.9 Obesity, unspecified; G40.909 Epilepsy, unspecified, not intractable, without status epilepticus; F84.0 Autistic disorder; R73.02 Impaired glucose tolerance (oral) | CPT/HCPCS: 96127; 99395 ==